=== PATIENT | female | born 1940 | race Caucasian/White ===

== ENCOUNTER 2017-02-14 08:25 | Observation (INO) | payer MEDICARE, OTHER ==
[2017-02-14 09:56] LABS: #Eosinphils 0.2 thou/uL (0.0-0.7); #Lymphocytes 1.1 thou/uL (1.20-3.40); #Monocytes 0.6 thou/uL (0.11-0.59); %Basophils 0.2 % (0.0-1.0); %Eosinophils 2.3 % (0.0-10.0); %Lymphocytes 15.9 % (21.0-51.0); %Monocytes 8.4 % (0.0-10.0); Hematocrit 34.4 % (36.0-47.0); Mean Platelet Volume 7.2 fL (7.4-10.4); Red Blood Cell (RBC) Count 4.02 mill/uL (4.20-5.40); White Blood Cell (WBC) Count 6.9 thou/uL (4.8-10.8)
[2017-02-14 10:19] LABS: ALT (SGPT) 36 U/L (8-55); AST (SGOT) 46 U/L (5-34); Alkaline Phosphatase 136 U/L (40-150); Anion Gap 11 mmol/L (10-20); BUN (Urea Nitrogen) 17 mg/dL (9.8-20.1); Bilirubin, Total 0.6 mg/dL (0.2-1.2); Calc. Creatinine Clearance 0 mL/min (70-130); Carbon Dioxide 25 mmol/L (23-31); Chloride 110 mmol/L (98-107); Estimated GFR-MDRD 70; Protein, Total 6.5 g/dL (6.0-8.3)
[2017-02-14 10:55] LABS: Troponin I 0.047 ng/mL (< 0.028)
--- NOTE | 2017-02-14 12:00 | RAD ---
RADIOGRAPH CHEST 1 VIEW: Date: 02/14/17. Time: 8:58 a.m. HISTORY: A 76-year-old female with chest pain for 2-3 weeks. COMPARISON: 11/30/16. FINDINGS: Cardiomegaly. Mild pulmonary vascular engorgement. No dale pulmonary alveolar edema. Prominent in terstitial markings. Left subclavian multilead AICD. No pneumothorax. No consolidation. No efface ment of lateral costophrenic angles. No major interval change. IMPRESSION: 1. Cardiomegaly and borderline congestive changes. 2. Automatic implantable cardioverter/defibrillator. 3. The findings are similar to 11/30/16. MARTA [] POS: BARRERA
[2017-02-14] MEDS ORDERED: Furosemide 100 MG/10 ML VIAL ONE (12:44)
[2017-02-14] MEDS ORDERED: Cefepime 2 GM, Syringe 2.5 ML in Sterile Water 10 ML SLOW IVP SCH (13:00)
[2017-02-14 13:27] LABS: Troponin I 0.064 ng/mL (< 0.028)
--- NOTE | 2017-02-14 14:14 | HP ---
HISTORY OF PRESENT ILLNESS: Ms. Flood is a 76-year-old woman. She came to this facility earlier today with complaint of shortness of breath and also dry cough. These symptoms have been in creasing in intensity for the last 2 days. She was evaluated and found to have CHF. She is being ad mitted for management. She denies any associated chest pain, denies diaphoresis. Denies lightheadedness. PAST MEDICAL HISTORY: Remarkable for hypertension, diabetes mellitus, CHF, coronary artery disease, cardiomyopathy. She is status post AICD placement. PAST SURGICAL HISTORY: Include also hysterectomy. ALLERGIES: She claims to have allergy to steroid. She could not quantify which steroid, but she yenifer cribes some side effect. SOCIAL HISTORY: She denies any history of cigarette smoking. Denies ETOH abuse. Denies drug abuse. FAMILY HISTORY: Reviewed and is not contributory. MEDICATIONS: Prior to admission, she was on amiodarone 200 mg b.i.d., aspirin 81 mg daily, Coreg, ci profloxacin, Plavix, Lasix, glimepiride, insulin Glargine, Imdur, lisinopril, warfarin, and she claim s that she was compliant to these medications. REVIEW OF SYSTEMS: CONSTITUTIONAL: Denies any fever. Denies weakness. HEENT: No headache, no ocular pain, no sore throat, no rhinorrhea, no earache, no epistaxis. NECK: No neck pain, no neck stiffness. CARDIOVASCULAR: Admits to shortness of breath, no chest pain. PULMONARY: Admits to dry cough. GASTROINTESTINAL: No nausea, no vomiting, no diarrhea, no abdominal pain. GENITOURINARY: No dysuria, no hematuria. ENDOCRINOLOGY: No heat or cold intolerance. No polyuria, polydipsia or polyphagia. MUSCULOSKELETAL: Occasional arthralgia. HEMATOLOGY: No abnormal bleeding, no ecchymosis. LYMPHATICS: No palpable lymphadenopathy, no painful lymphadenopathy. SKIN: No rash. No itching. ALLERGIES: No hayfever. NEUROLOGICAL: No seizure. PSYCHIATRIC: No anxiety, no depression. PHYSICAL EXAMINATION: GENERAL: At the current time, she is alert, oriented, receiving oxygen via nasal cannula. VITAL SIGNS: Temperature of 98.4, pulse rate 71, respiratory rate 20, blood pressure 171/80. HEENT: Her head is normocephalic and atraumatic. Both her pupils are equal, reactive. Ears and nos e normal. Oral mucosa is moist. Pharyngeal area is clear. NECK: Supple. There is no distention of the jugular vein. No lymphadenopathy felt. Thyroid gland not palpable. There is no carotid bruit. CHEST: Symmetrical, regular, S1, S2. LUNGS: Show some rales at both bases. ABDOMEN: Soft. Bowel sounds are heard. I could not appreciate any organomegaly. There is no focal area of tenderness. EXTREMITIES: Limbs show +2 to 3 edema. NEUROLOGIC: She moves all extremities. LABORATORY DATA: Chest x-ray was reported to show cardiomegaly with borderline congestive changes, t here is a defibrillator in place, no change from previous x-ray done on 11/30/2016. CBC showed WBC o f 6.9, hemoglobin of 11.1, hematocrit of 34.4, MCV of 85.5, platelet of 261. Chemistry and electroly stacy showing a sodium of 142, potassium 4.1, chloride 110, CO2 25, BUN 17, creatinine 0.79, glucose 27 6, calcium 9, total bilirubin 0.6, AST 46, ALT 36, alkaline phosphatase 136, creatinine 59. Troponin was noticed to be elevated at 0.047 and it is increasing currently at 0.064. BNP is 515.6. Albumin is 3.6, globulin 3.0. ASSESSMENT AND PLAN: This is a 76-year-old woman with history of hypertension, diabetes me llitus, coronary artery disease, cardiomyopathy, congestive heart failure who was admitted with conge stive heart failure. Her troponin was noticed to be significantly elevated. We will get Cardiology evaluation. She will be admitted to telemetry for management of congestive heart failure. Please se e orders.
[2017-02-14] MEDS ORDERED: Insulin Regular 300 UNITS/3 ML VIAL SC PRN (16:24)
[2017-02-14] MEDS ORDERED: Bisacodyl 5 MG TAB PO PRN (16:24)
[2017-02-14] MEDS ORDERED: Dextrose 50% Abboject 50 ML SYRINGE SLOW IVP PRN (16:24)
[2017-02-14] MEDS ORDERED: Dextrose 5% in Water 1,000 ML IV PRN (16:24)
[2017-02-14] MEDS ORDERED: Acetaminophen 325 MG TAB PO PRN (16:24)
[2017-02-14 16:34] LABS: Troponin I 0.066 ng/mL (< 0.028)
[2017-02-14] MEDS ORDERED: Furosemide 40 MG/4 ML VIAL SLOW IVP SCH (16:45)
[2017-02-14 16:50] LABS: Prothrombin Time 24.5 SEC (12.0-14.7)
[2017-02-14 16:52] VITALS: BMI 36.2
[2017-02-14] MEDS ORDERED: FLU VACC TS2017-18 (>65YR) 0.5 ML SYRINGE IM ONE (17:00)
[2017-02-14 19:46] LABS: Troponin I 0.066 ng/mL (< 0.028)
[2017-02-14] MEDS: Cipro 250 MG TAB PO SCH (21:13)
[2017-02-14] MEDS: Carvedilol 25 MG TAB PO SCH (21:14)
[2017-02-14] MEDS ORDERED: Furosemide 100 MG/10 ML VIAL SLOW IVP SCH (22:00)
[2017-02-15 05:16] LABS: Anion Gap 10 mmol/L (10-20); BUN (Urea Nitrogen) 15 mg/dL (9.8-20.1); Calc. Creatinine Clearance 99 mL/min (70-130); Carbon Dioxide 26 mmol/L (23-31); Chloride 108 mmol/L (98-107); Estimated GFR-MDRD 77
[2017-02-15 05:31] LABS: Band 1 % (5-11); Hematocrit 35.3 % (36.0-47.0); Neutrophil 69 % (42-75); Red Blood Cell (RBC) Count 4.17 mill/uL (4.20-5.40)
[2017-02-15] MEDS ORDERED: Furosemide 40 MG/4 ML VIAL SLOW IVP SCH (06:00)
[2017-02-15] MEDS: Cipro 250 MG TAB PO SCH (06:33)
[2017-02-15] MEDS ORDERED: Glimepiride 4 MG TAB PO SCH (07:30)
[2017-02-15] MEDS ORDERED: Warfarin Sodium 5 MG TAB PO SCH (09:00)
[2017-02-15] MEDS ORDERED: Clopidogrel Bisulfate 75 MG TAB PO SCH (09:00)
[2017-02-15] MEDS ORDERED: INSULIN GLARGINE SC SCH (09:00)
[2017-02-15] MEDS ORDERED: Lisinopril 20 MG TAB PO SCH ×2 (09:00→21:00)
[2017-02-15] MEDS ORDERED: Insulin Detemir 100 UNITS/ML 8 UNITS in Pre-Filled Syringe 1 EACH SC SCH (09:00)
[2017-02-15] MEDS ORDERED: Insulin Regular 300 UNITS/3 ML VIAL SC PRN (09:35)
[2017-02-15] MEDS ORDERED: Potassium Chloride 20 MEQ TAB PO SCH ×3 (09:45→17:00)
[2017-02-15] MEDS: Carvedilol 25 MG TAB PO SCH (09:55)
[2017-02-15 10:48] LABS: Magnesium 2.3 mg/dL (1.6-2.6); Phosphorus 2.9 mg/dL (2.3-4.7)
[2017-02-15] MEDS ORDERED: hydrALAZINE 20 MG/ML VIAL SLOW IVP PRN (11:17)
[2017-02-15 12:34] VITALS: TEMP 98.1
--- NOTE | 2017-02-15 13:42 | CON ---
DATE OF CONSULTATION: 02/15/2017 PRIMARY CARE PHYSICIAN: Dr. Ishan Penn PRIMARY LEAD MANUFACTURING TECHNICIAN: Dr. Kandice Kraus REASON FOR CARDIOLOGY CONSULTATION: Indeterminant troponin level and chronic congestive heart failure. HISTORY OF PRESENT ILLNESS: Ms. Flood is a 76-year-old female with significant history of chronic systolic heart failure with AICD placement, coronary artery disease, diabetes, hypertension. She reports that she had some congestion in her chest and continued coughing with a runny nose for about more than 2 weeks. About 1 week ago, she went to follow up with the patient's primary care doctor for her congestion. She received an antibiotic injection and a steroid injection. She felt better after those medication treatments; however, she is still having cough. Yesterday she decided to present to emergency department for further evaluation and treatment because she could not breathe with slight light pressure to her midsternal area to the left side. During that episode she denies chest pain or fluttering or palpitations in her chest, shortness of breath, nausea, vomiting, dizziness, lightheadedness or any other cardiac complaints. Her amlodipine was stopped at the last office visit at Dr. Laguerre's office due to chronic edema in her bilateral lower extremities. Today, she reported that her edema has been well controlled; however, her blood pressure has been 130-140s in the a.m. and 150 to 170s in the p.m. The patient underwent a cardiac catheterization and stent placement to distal RCA in the mid RCA and proximal RCA with bare metal stent in January 2016. Her latest echocardiogram in 11/2016 which revealed EF of 20-25%, a kinetic anterior wall and this kinetic apex and probable diastolic dysfunction, moderate dilated left atrium, mildly enlarged right atrium, moderate mitral regurgitation, mild to moderate tricuspid regurgitation. PAST MEDICAL HISTORY: 1. Combined systolic and diastolic heart failure. 2. Hypertension. 3. Coronary artery disease with stent placement in 01/2016. 4. History of cardiac arrest about 1-2 years ago. 5. History of kidney stones. 6. Urinary tract infection. 7. Ischemic cardiomyopathy with AICD placement. 8. Proximal atrial fibrillation. PAST SURGICAL HISTORY: 1. Multiple cardiac stent placements, which the last one is in January 2016 with 3 bare metal stents. 2. Automatic implantable cardioverter/defibrillator placement. This is a [place] defibrillator. 3. Hysterectomy. 4. History of multiple ulcers and incision and drainage to her right lower leg. FAMILY HISTORY: There are no significant coronary artery disease, stroke or disease in her post-maternal or paternal side. SOCIAL HISTORY: She is and she lives by herself. Her children are living close to her and one of her daughters is a nurse and checks her vital signs twice every day. The patient denies any tobacco, alcohol or illicit drug abuse. She states she drinks lots of fluid and she is being active daily. ALLERGIES: She has no known drug allergies. HOME MEDICATIONS: Aspirin 81 mg once a day, lisinopril 20 mg twice a day, Plavix 75 mg once a day, glimepiride 4 mg twice a day, amlodipine 200 mg 1/2 tablet twice a day, Lasix 40 mg once a day, Carvedilol 25 mg twice a day, Imdur 60 mg once a day, Coumadin 5 mg, takes 1.5 tablets on Wednesday, Wednesday, Wednesday , and take 1 tablet on Wednesday, , Wednesday, Wednesday. The patient's amiodarone was discontinued due to chronic edema in her lower extremities. REVIEW OF SYSTEMS: The following complete review of systems was negative, unless otherwise mentioned in the HPI or below. CONSTITUTIONAL: Weight loss or gain, sense of well-being, ability to conduct usual activity, exercise tolerance. SKIN: She had 1 dry ablation in her left lower extremities. She says she hit somewhere, but her condition is stable at this moment, otherwise negative for rash, itching, nail changes. BREASTS: No tenderness, swelling, nipple discharge. EYES: Vision change, double vision, tearing, blind spots or pain. ENT: Headache, fatigue, vertigo, lightheadedness, dizziness, nasal bleeding, nasal obstruction with discharge, dental difficulty, gingival bleeding, denture , neck stiffness, pain, tenderness, mass in the thyroid or other areas. CARDIOVASCULAR: Precordial pain, palpitations, syncope, dyspnea on exertion, orthopnea, nocturnal dyspnea, cyanosis, heart murmur, claudication, respiratory pain, shortness of breath, wheezing, stridor, hemoptysis, fever or night sweats. GASTROINTESTINAL: Poor appetite, dysphagia, indigestion, abdominal pain, heartburn, nausea, vomiting, diarrhea, abnormal stool or blood in the stool. GENITOURINARY: Urgency, frequency, dysuria, nocturia, hematuria, polyuria, oliguria, unusual color of urine. MUSCULOSKELETAL: Pain, swelling, redness or heat of muscle or joint, limitation of motion, muscular weakness, atrophy or cramps. NEUROLOGIC: Seizure, conversion, paralysis, tremor, incoordination, difficulty with memory of speech. Sensory or motor disturbance, muscular coordination. PSYCHIATRIC: Emotional problem, anxiety, depression, previous psychiatric care , unusual perception. PHYSICAL EXAMINATION: VITAL SIGNS: Blood pressure 176/73, temperature 97.6, pulse is 66, atrial fibrillation and AV pacing, respiratory rate 16, O2 sat 96% with room air. GENERAL: Well-developed, and well-nourished without any acute distress. HEAD: Normocephalic and atraumatic. EYES: Extraocular muscle movement is intact. ENT: Oral and nasal mucosa are moist without lesion. NECK: No jugular venous distention. Neck is supple and normal range of motion. LUNGS: Slightly coarse and diminished at the bases, but no wheezing, rales or rhonchi noted. CARDIOVASCULAR: Irregular heart rate and rhythm. No significant murmur, hives , thrill bruit or rub noted. 2+ in the bilateral dorsal pedis pulses, posterior tibial, and popliteal. Carotid pulses are present with bruit in the bilateral carotids, but no thrill. EXTREMITIES: There was 1-2+ pitting edema in the bilateral lower extremities with discoloration. ABDOMEN: Soft, nontender or mass to palpate, nondistended. Bowel sounds are present. MUSCULOSKELETAL: Able to move all extremities. No calf tenderness. SKIN: Warm and dry. No skin rash or lesion, rash or bruises noted, but one dry healing lesion to her right lower extremity and with discoloration to the bilateral lower extremities. NEUROLOGIC: Alert, oriented x4, awake, normal affect, nonfocal. PSYCHIATRIC: Mood and affect normal. EKG: A 12-lead EKG in the ER revealed atrial fibrillation and V-paced. Heart rate 64. The patient's chest x-ray revealed cardiomegaly and borderline congestive change which is the finding similar to 11/2016 LABORATORY DATA: WBC 7.0, hemoglobin 11.2, hematocrit 37.5, platelets 283. PT 24.5, INR a2.1, sodium 141, potassium 3.2, BUN 15, creatinine 0.73, glucose 77. Phosphorus 9.0 and CK-MB 1.7, troponin 0.047, 0.064, 0.066. BNP is 15.6. ASSESSMENT AND PLAN: 1. Indeterminate troponin level. This increased troponin level was possibly secondary to severe coughing prior to this admission. She reports she really coughed very hard until she was admitted to the hospital and her condition is much improved since she received antibiotic IV and Lasix. We would like to continue to monitor this patient on telemetry; however, I believe she does not need any further cardiac workup or studies at this moment. I would like to discuss with Dr Kraus about her further evaluation and treatment plan. 2. Shortness of breath, which is stable. Her shortness of breath is possible secondary to congestion or from congestive heart failure. Either way, the patient's condition is stable. We would like to continue Lasix 40 mg p.o. twice a day at this moment, . 3. Hypertension. Her blood pressures tend to be high today. I would like to increase the patient's Lisinopril to 20 mg twice a day, which is her home dose. The patient's creatinine level is stable at this moment. 4. Ischemic cardiomyopathy with AICD placement. The patent has been followed up with [facility] for AICD interrogation. She was told her interrogation showed normal. At this moment she is on the fluid restriction of 1500 mL per day. 5. Coronary artery disease with multiple history of multiple stents which the last procedure was in 2016. Her condition is stable at this moment. We would like to continue to monitor on telemetry. 6. Paroxysmal atrial fibrillation. Telemetry recorded shows in atrial fibrillation. The patient's heart rate was well controlled with amiodarone and Coumadin. We would like to continue her current medications. The patient's INR today was 2.1. 7. Diabetes type 2. She is on AC and at bedtime blood glucose check with sliding scale insulin order which is managed by primary care doctor. Thank you very much for allowing Cardiology office to participate in the care of this patient. We will follow along with the patient care team and make further recommendations as appropriate. ANGEL LUIS
[2017-02-15] MEDS ORDERED: Furosemide 40 MG TAB PO SCH (14:00)
[2017-02-15 16:03] VITALS: BP 120/59
--- NOTE | 2017-02-15 16:33 | DIS ---
DATE OF ADMISSION: 02/14/2017 DATE OF DISCHARGE: 02/15/2017 DISCHARGE DISPOSITION: Home. FOLLOWUP: 1. Follow up with primary care physician, Dr. Ishan Penn in 1 week. 2. Base met in 1 week is recommended. Primary care physician advised to arrange and follow. 3. Follow up with Cardiology in 1-2 weeks. ALLERGIES: Patient is allergic to INSULIN. DISCHARGE MEDICATIONS: 1. Lisinopril 20 mg b.i.d. (dose increased). 2. Potassium chloride 20 mEq daily for next 2 days. 3. Other home medications were resumed including amiodarone 200 mg b.i.d., aspirin 81 mg daily, carv edilol 25 mg b.i.d., Plavix 75 mg daily, Lasix 40 mg b.i.d., glimepiride 8 mg daily, Lantus insulin 8 0 units daily, Imdur 60 mg daily, Coumadin as directed. The patient was advised to resume her Coumad in follow up. INPATIENT THICKENER OPERATOR: Cardiology, Dr. Kraus. BRIEF HOSPITAL COURSE: The patient is a 76-year-old white female with chronic systolic heart failure , hypertension, diabetes, coronary artery disease, status post stent and chronic atrial fibrillation on anticoagulation who presented to the hospital with shortness of breath. Please refer to the histo ry and physical dated 02/28/[address] Fuller for further details. The patient was admitted to the hospital with diagnosis of acute on chronic systolic/diastolic heart failure exacerbation. She showed good improvement with diuretics. She had hypokalemia next day for which potassium has been replaced. Her troponins were in indeterminate range, maximum of 0.066. Pat ient was evaluated by Cardiology, Dr. Kraus. Her lisinopril dose has been increased. She has been cl eared by Cardiology for discharge. FINAL DIAGNOSES: 1. Acute on chronic systolic/diastolic heart failure exacerbation, improved. 2. Hypokalemia, replaced. 3. Coronary artery disease, status post stent placement. 4. Chronic atrial fibrillation on anticoagulation with Coumadin. 5. History of automated implantable cardioverter-defibrillator. 6. History of ventricular tachycardia in the past. 7. Chronic kidney disease stage 2. 8. Hypertension. 9. Diabetes mellitus type 2. 10. Obesity with body mass index 36.3. 11. Slightly abnormal LFT probably secondary to demand ischemia. 12. Chronic kidney disease stage 2. 13. Chronic anemia. SIGNIFICANT LABORATORY DATA: Potassium of 3.2. Troponins as discussed above. CBC showed WBC 7 with hemoglobin 11.2, creatinine of 0.73 with BUN 15. BNP was 515. AST of 46. The patient was seen and examined on the day of discharge, denies any new complaints. Vital signs on the day of discharge showed temperature 98.1, pulse rate of 61, blood pressure of 120/59 with O2 sat uration 96% on room air. Plan of care was discussed with the patient in detail and she stated understanding.
[2017-02-15] MEDS ORDERED: Warfarin Sodium 2.5 MG TAB PO SCH (17:00)
--- NOTE | 2017-02-15 17:03 | CON ---
DATE OF CONSULTATION: 02/15/2017 DATE OF ADMISSION: 02/14/2017 INDICATION FOR CONSULTATION: A 76-year-old female with congestive heart failure exacerbation. HISTORY OF PRESENT ILLNESS: Please also refer the notes by nurse practitioner Tia. This is a very pleasant 76-year-old female who has been followed by me for many years. She has suffe red a large silent anterior myocardial infarction many years ago and has had an ejection fraction whi ch has been extremely low, less than 20-30% for many years. She has also had coronary artery disease , undergone angioplasty and stent placement. She has an AICD. She has a pacing 100% and recently leung d been noted to have increased cough. She was seen and was started on steroids and antibiotics witho ut any improvement. She continued to have coughing. She then presented to the emergency room and wa s admitted. She was given, I believe what appears to be IV diuretics in the emergency room, she had increased urination now and is feeling better and most likely she was volume overloaded in addition t o having some mild lower respiratory tract infection. She seems to be better now. She is asymptomat ic and was to be discharged to home. 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 At this time, her blood pressure is still somewhat fluctuant which she says is due to her being here and being stressed out, but her vital sig ns at this time show blood pressure 108/72, earlier was 189/74. Her heart rate is in the 60s and harmony ws 100% pacing. She is afebrile, respiratory rate is 20. PHYSICAL EXAMINATION: HEENT: Shows the head to be normocephalic, atraumatic. CHEST: Clear to auscultation. There were no rales, rhonchi or wheezing. CARDIOVASCULAR: Exam reveals a regular rate and rhythm, shows a normal S1, S2. I cannot hear any si gnificant murmurs, heaves, thrills, bruits or rubs. She has a very soft systolic murmur at the apex. ABDOMEN: Shows obesity. EXTREMITIES: Showed a mild lower extremity edema, but otherwise no significant abnormalities were no king. IMPRESSION: 1. As noted above by the nurse practitioner, she has congestive heart failure exacerbation, which is improved after diuretics. She may need to have some adjustment of her medications, but this can be done as an outpatient. I will see her back in the office in the next 2-4 weeks. 2. Slight elevation of cardiac enzymes which most likely due to demand ischemia associated with the congestive heart failure and this is not significant and would not be an indication to proceed with a cardiac catheterization, they have remained stable at 0.066. Troponin I earlier was 0.047. Her BNP is 516. Her blood sugar was elevated at 276. Her INR is 2.1. 3. History of AICD implant, this appears to be stable. She has had no problems with a defibrillator . 4. History of hypertension. This is somewhat fluctuant but she will need to be continued on her med ications. 5. History of paroxysmal atrial fibrillation. She had been placed on amiodarone in the past. This has now been held, I am uncertain is to why she was intolerant to medication. She had been on this i n the past and may be able to decrease the dose to 100 mg once a day. She had been on 200 mg twice a day for her atrial fibrillation. Otherwise, she appears to be stable from a cardiac standpoint, blo od pressure remains stable, she could be discharged home later today or first thing tomorrow morning if she has any further symptoms later on during the day today. We will be more than happy to continue to follow the patient with you. We will her in the office in the next couple of weeks.
[2017-02-16] MEDS ORDERED: Warfarin Sodium 5 MG TAB PO SCH (17:00)
--- NOTE | 2017-02-20 13:36 | EKG ---
Test Reason : SOB Blood Pressure : / mmHG Vent. Rate : 064 BPM Atrial Rate : 064 BPM P-R Int : 000 ms QRS Dur : 168 ms QT Int : 552 ms P-R-T Axes : 119 270 108 degrees QTc Int : 569 ms AV dual-paced rhythm Abnormal ECG Confirmed by DORCAS MATTA, DEAN North ([id number]), editorial director JEREMIE MANDUJANO ([id number]) on 02/20/2017 1:36:09 PM Referred By: DORCAS Confirmed By:DEAN TOSCANO MD
== END 2017-02-15 16:29 | disposition home or self-care (01) ==
LOC: ERS 08:25 → ERHOLD 12:38 → 2SW 16:18
PROVIDERS: ADMIT Hospitalist; ATTEND Hospitalist
DX: I13.0 Hypertensive heart and chronic kidney disease with heart failure and stage 1 through stage 4 chronic kidney disease, or unspecified chronic kidney disease (principal); E11.22 Type 2 diabetes mellitus with diabetic chronic kidney disease; N18.2 Chronic kidney disease, stage 2 (mild); I50.43 Acute on chronic combined systolic (congestive) and diastolic (congestive) heart failure; D63.1 Anemia in chronic kidney disease; E87.6 Hypokalemia; I25.10 Atherosclerotic heart disease of native coronary artery without angina pectoris; I48.91 Unspecified atrial fibrillation; E66.9 Obesity, unspecified; Z68.36 Body mass index [BMI] 36.0-36.9, adult; Z88.8 Allergy status to other drugs, medicaments and biological substances; Z79.01 Long term (current) use of anticoagulants; Z79.82 Long term (current) use of aspirin; Z79.84 Long term (current) use of oral hypoglycemic drugs; Z79.899 Other long term (current) drug therapy; Z95.5 Presence of coronary angioplasty implant and graft; Z95.810 Presence of automatic (implantable) cardiac defibrillator; Z90.710 Acquired absence of both cervix and uterus
CPT/HCPCS: 71010; 80048; 80053; 82550; 82553; 82962 ×2; 83735; 83880; 84100; 84484 ×2; 85007; 85025; 85027; 85610; 93005; 96374; 96375 ×2; 96376; 99285; G0378; 36415; 36416; A4216; J0360; J0692; J1815; J1940

== ENCOUNTER 2017-03-17 15:35 | Emergency (ER) | payer MEDICARE, OTHER ==
[2017-03-17] MEDS ORDERED: Norepinephrine 8 MG/0.9% NS 250 ML ONE (15:47)
[2017-03-17] MEDS ORDERED: EPINEPHrine 1 MG/10 ML Abboject SYRINGE ONE (23:01)
[2017-03-17] MEDS ORDERED: Sodium Bicarb 50 MEQ/50 ML Abboject 8.4% SYRINGE ONE (23:01)
== END 2017-03-17 16:04 | disposition expired ==
LOC: ERS 15:35
DX: I46.9 Cardiac arrest, cause unspecified (principal); E11.9 Type 2 diabetes mellitus without complications; I25.2 Old myocardial infarction; E78.5 Hyperlipidemia, unspecified; I11.0 Hypertensive heart disease with heart failure; I50.9 Heart failure, unspecified
CPT/HCPCS: 36416; 92950; 96374; 96375; J0171